=== PATIENT | female | born 1990 | race Hispanic/Latino ===

== ENCOUNTER 2018-12-18 05:52 | Day surgery (SDC) | payer OTHER ==
[2018-12-17 11:52] LABS: BASOPHILS % (AUTO) 0.3 % (0.0-5.0); EOSINOPHILS % (AUTO) 1.4 % (0.0-8.0); HEMATOCRIT 40.3 % (36-48); LYMPHOCYTES % (AUTO) 27.1 % (21.0-51.0); MEAN CORPUSCULAR HGB CONC 33.7 g/dL (32.0-36.0); MEAN CORPUSCULAR VOLUME 82.9 fL (79-99); NEUTROPHILS % (AUTO) 65.2 % (40.0-77.0); PLATELET COUNT (AUTO) 281 K/uL (130-400); RED BLOOD CELL COUNT(AUTO) 4.86 MIL/uL (4.00-5.50); RED CELL DISTRIBUTION WIDTH 13.9 % (11.0-15.5); WHITE BLOOD COUNT (AUTO) 8.6 K/uL (4.8-10.8)
[2018-12-17 11:59] VITALS: BP 119/76
[~2018-12-18] VITALS: Ht 154.9 cm; Wt 77.0 kg
[2018-12-18] VITALS (17 sets, daily range): BP systolic 106–135; BP diastolic 57–85
[~2018-12-18 05:52] MED LIST: ALBU8.5H8 IH; CALDOLOR 800MG+NS 250ML 250 ML IV SCH; CEFAZOLIN SODIUM 1 GM VIAL IVP SCH; LACTATED RINGERS 1000ML 1,000 ML IV SCH
[2018-12-18] MEDS ORDERED: MIDAZOLAM HCL 1 MG/ML 2ML VIAL ONE (06:33)
[2018-12-18] MEDS ORDERED: SUCCINYLCHOLINE 200MG/10ML SYR ONE ×2 (06:33→07:34)
[2018-12-18] MEDS ORDERED: ONDANSETRON HCL 4 MG/2 ML VIAL ONE (06:33)
[2018-12-18] MEDS ORDERED: DEXAMETHASONE SOD PHOSPHATE 10MG/ML 1ML VIAL ONE (06:33)
[2018-12-18] MEDS ORDERED: LIDOCAINE PF 2% 5ML ABBOJECT ONE ×2 (06:33→07:34)
[2018-12-18] MEDS ORDERED: GLYCOPYRROLATE 1 MG/5 ML SYRINGE ONE (06:34)
[2018-12-18] MEDS ORDERED: NEOSTIGMINE 5MG/5ML SYR IV ONE (06:34)
[2018-12-18] MEDS ORDERED: ROCURONIUM 10MG/1ML SYR 10 MG/ML ML ONE (06:34)
[2018-12-18] MEDS ORDERED: PROPOFOL 10 MG/ML 20ML VIAL IV ONE (06:34)
[2018-12-18] MEDS ORDERED: FENTANYL CITRATE PF 50 MCG/1 ML 2ML VIAL ONE ×4 (06:35→08:54)
[2018-12-18] MEDS ORDERED: LIDOCAINE HCL 4% LTA SOL 4 ML VIAL ONE (06:37)
[2018-12-18] MEDS ORDERED: BUPIVACAINE/PF 0.25% 30ML VIAL IJ ONE (06:52)
[2018-12-18] MEDS ORDERED: ESMOLOL HCL 10 MG/ML 10 ML VIAL ONE (08:07)
[2018-12-18] MEDS ORDERED: OXYMETAZOLINE HCL SPRAY 15 ML BOTTLE ONE (08:23)
[2018-12-18] MEDS ORDERED: MEPERIDINE-PF 25 MG/ML SYG ONE (09:23)
[2018-12-18] MEDS ORDERED: MEPERIDINE-PF 25 MG/ML SYG IVP PRN (11:15)
[2018-12-18] MEDS ORDERED: RACEPINEPHRINE HCL 2.25% 0.5 ML NEB SOLN NEB PRN (11:15)
[2018-12-18] MEDS ORDERED: IPRATROPIUM/ALBUTEROL SULFATE 3 ML SOLUTION IH PRN (11:15)
[2018-12-18] MEDS ORDERED: FENTANYL CITRATE PF 50 MCG/1 ML 2ML VIAL IVP PRN (11:15)
[2018-12-18] MEDS ORDERED: ONDANSETRON HCL 4 MG/2 ML VIAL IVP PRN (11:15)
[2018-12-18] MEDS ORDERED: MORPHINE SULFATE 5 MG/ML VIAL IVP PRN (11:15)
[2018-12-18] MEDS ORDERED: PROMETHAZINE HCL 25 MG/ML 1ML AMPULE IM PRN (11:15)
[2018-12-18] MEDS ORDERED: METOCLOPRAMIDE 10 MG/2 ML VIAL IVP PRN (11:15)
[2018-12-18] MEDS ORDERED: NALOXONE HCL 0.4 MG/1 ML ML IVP PRN (11:15)
[2018-12-18] MEDS ORDERED: KETOROLAC TROMETHAMINE 30MG/ML IVP PRN (11:15)
== END 2018-12-18 12:07 | disposition home or self-care (01) ==
LOC: DAH 05:52
PROVIDERS: ATTEND Obstetrics & Gynecology
DX: Z30.2 Encounter for sterilization (principal); D25.0 Submucous leiomyoma of uterus; N92.0 Excessive and frequent menstruation with regular cycle; J45.909 Unspecified asthma, uncomplicated; Z98.890 Other specified postprocedural states; Z79.899 Other long term (current) drug therapy; Z88.8 Allergy status to other drugs, medicaments and biological substances; Z82.49 Family history of ischemic heart disease and other diseases of the circulatory system; E66.9 Obesity, unspecified; F41.9 Anxiety disorder, unspecified
CPT/HCPCS: 36415; 58561; 58563; 58670; 84703; 85025; 86850; 86900; 86901; 88305; A4215; A4218; A4351; A4355; C1769; G0168; J0330 ×2; J0690; J1100; J1741; J2001 ×2; J2175; J2250; J2405 ×2; J2704; J2710; J3010 ×4; J3490 ×3; J7030; J7120 ×2

== ENCOUNTER 2024-02-20 01:31 | Emergency (ER) | payer OTHER ==
[~2024-02-20] VITALS: Ht 154.9 cm; Wt 80.3 kg
[~2024-02-20 01:31] MED LIST changes: -CALDOLOR 800MG+NS 250ML 250 ML IV SCH; -CEFAZOLIN SODIUM 1 GM VIAL IVP SCH; -LACTATED RINGERS 1000ML 1,000 ML IV SCH
[2024-02-20] MEDS: ACETAMINOPHEN 325 MG TAB PO ONE (02:46)
[2024-02-20] MEDS: ACETAMINOPHEN 325 MG TAB ONE (02:46)
[2024-02-20 02:48] VITALS: BP 120/83; PULSE 70; RESP 16; O2SAT 99
[2024-02-20 02:50] LABS: APPEARANCE,URINE CLEAR (CLEAR); BILIRUBIN,URINE NEGATIVE (NEGATIVE); COLOR,URINE YELLOW (YELLOW); GLUCOSE, URINE (UA) NEGATIVE (NEGATIVE); KETONES,URINE 5 mg/dL (NEGATIVE); LEUKOCYTE ESTERASE ,URINE 25 Leu/uL (NEGATIVE); NITRATE,URINE NEGATIVE (NEGATIVE); OCCULT BLOOD,URINE MODERATE (NEGATIVE); PH,URINE 5.5 (5.0-8.0); PROTEIN,URINE 20 mg/dL (NEGATIVE); UROBILINOGEN,URINE 0.2 mg/dL (0.2-1.0)
[2024-02-20 02:55] LABS: ADD UA MICROSCOPIC YES
[2024-02-20 02:59] LABS: BACTERIA,URINE None Seen /HPF (None Seen)
[2024-02-20 03:00] LABS: MUCUS,URINE Moderate LPF (None Seen); SQUAMOUS EPITHELIAL CELL,UR Many /HPF (0-2)
[2024-02-20 03:01] LABS: HCG,QUALITATIVE URINE NEGATIVE (NEGATIVE)
== END 2024-02-20 03:33 | disposition home or self-care (01) ==
LOC: EDH 01:31
DX: S39.81XA Other specified injuries of abdomen, initial encounter (principal); S09.8XXA Other specified injuries of head, initial encounter; N93.9 Abnormal uterine and vaginal bleeding, unspecified; M79.641 Pain in right hand; J45.909 Unspecified asthma, uncomplicated; Z79.899 Other long term (current) drug therapy; Z98.890 Other specified postprocedural states; Z88.8 Allergy status to other drugs, medicaments and biological substances; Y08.89XA Assault by other specified means, initial encounter; Y93.89 Activity, other specified; Y92.89 Other specified places as the place of occurrence of the external cause; Y99.8 Other external cause status
CPT/HCPCS: 81001; 81025